=== PATIENT | female | born 1970 | race Caucasian/White ===

== ENCOUNTER → 2017-07-29 | Outpatient (CLI) | payer BC | LOC: MC.RAD 14:13 | DX: Z12.31 Encounter for screening mammogram for malignant neoplasm of breast (principal) ==

== ENCOUNTER → 2018-07-30 | Outpatient (CLI) | payer BC | LOC: MC.RAD 10:53 | DX: Z12.31 Encounter for screening mammogram for malignant neoplasm of breast (principal) ==

== ENCOUNTER → 2019-08-22 | Outpatient (CLI) | payer BC | LOC: MC.RAD 16:11 | DX: Z12.31 Encounter for screening mammogram for malignant neoplasm of breast (principal) ==

== ENCOUNTER → 2020-09-05 | Outpatient (CLI) | payer BC | LOC: MC.RAD 09:05 | DX: Z12.31 Encounter for screening mammogram for malignant neoplasm of breast (principal) ==

== ENCOUNTER → 2021-05-16 | Day surgery (SDC) | payer BC ==
[~2021-05-16] VITALS: Ht 165.1 cm; Wt 87.2 kg
[~2021-05-16] MED LIST: Birth Control PO; Blood Pressure PO; LEXAPRO 10MG10 MG PO
[2021-05-16 10:00] VITALS: BP 123/71; PULSE 64; TEMP 97
[2021-05-16 10:15] VITALS: BP 121/87; PULSE 69
--- NOTE | 2021-05-16 10:30 | NUR ---
1000 - Pt returns from endo procedure via cart to [facility]. Monitors on and alarms set. Call light within reach. Pt alert and oriented. Pt requests water and muffin. Pt denies any pain or nausea. 1015 - Pt taking food and drink well. No complications noted. 1030 - Discharge instructions given to pt. All questions answered to ? satisfaction. Handed to pt are a thank you card and discharge information. 1035 - Pt transferred out of the hospital via wheelchair to private vehicle driven by support person
[2021-05-16 10:42] VITALS: BP 124/74; PULSE 63; TEMP 97.8
== END ==
LOC: SDCO 08:10
DX: Z12.11 Encounter for screening for malignant neoplasm of colon (principal); K62.89 Other specified diseases of anus and rectum; K63.89 Other specified diseases of intestine; I10 Essential (primary) hypertension; F32.9 Major depressive disorder, single episode, unspecified; F41.9 Anxiety disorder, unspecified; Z20.822 Contact with and (suspected) exposure to COVID-19
CPT/HCPCS: J2704; J7120

== ENCOUNTER → 2021-06-27 | Outpatient (CLI) | payer BC | LOC: MC.RAD 07:58 | DX: M79.622 Pain in left upper arm (principal) ==

== ENCOUNTER → 2021-11-03 | Outpatient (CLI) | payer BC | LOC: MC.RAD 07:55 | DX: Z12.31 Encounter for screening mammogram for malignant neoplasm of breast (principal) ==

== ENCOUNTER → 2024-01-14 | Outpatient (CLI) | payer BC | LOC: MC.RAD 08:00 | DX: Z12.31 Encounter for screening mammogram for malignant neoplasm of breast (principal); N64.89 Other specified disorders of breast ==